=== PATIENT | female | born 1965 | race Caucasian/White ===

== ENCOUNTER 2021-03-05 13:40 | Emergency (ER) | payer MEDICAID ==
[~2021-03-05] VITALS: Ht 162.6 cm; Wt 68.0 kg
[2021-03-05 14:08] VITALS: BP 134/74
--- NOTE | 2021-03-05 14:16 | NUR ---
PT REFUSED INITIAL EKG "I DID NOT FEEL COMFORTABLE WITH THE PERSON"
[2021-03-05] MEDS ORDERED: predniSONE 20 mg tablet PO ONE (14:25)
[2021-03-05] MEDS ORDERED: albuterol 2.5 MG/3 ML nebule NEB ONE (14:25)
[2021-03-05] MEDS ORDERED: PRED20TA PO (14:43)
[2021-03-05] MEDS ORDERED: ALBU6.7H9 INH (14:43)
[2021-03-05] MEDS ORDERED: DOXY-1 PO (14:43)
--- NOTE | 2021-03-05 15:08 | NUR ---
Attempted to give PO prednisone to pt. after placing pills in medicine cup, pt took them out and placed them in her hand, then requested to see pill packets. When provided pill packets, the pt stated "you guys are up to something that's not right". She then stated she wanted to take the medications with her. I informed her she needed to take the medications we gave her here, or return them to me to be properly disposed of if refusing medications. Pt refused to give them to, or take them. She then stated to me that I needed to call the [facility] for her to observe my nursing care. At this time, I told her that if she wanted to speak to the [facility] that she needed to call them personally.
== END 2021-03-05 15:21 | disposition home or self-care (01) ==
LOC: ER 13:41
DX: J40 Bronchitis, not specified as acute or chronic (principal); R55 Syncope and collapse; R07.89 Other chest pain; R06.02 Shortness of breath; F15.90 Other stimulant use, unspecified, uncomplicated; F17.290 Nicotine dependence, other tobacco product, uncomplicated; Z59.0 Homelessness; Z56.0 Unemployment, unspecified; Z79.2 Long term (current) use of antibiotics; Z71.6 Tobacco abuse counseling; Z79.899 Other long term (current) drug therapy
CPT/HCPCS: 71045; 93005; 94640; 99283; 99406; J7512; 94760